=== PATIENT | female | born 1990 | race African-American/Black ===

== ENCOUNTER 2020-06-05 13:04 | Emergency (ER) | payer OTHER ==
[2020-06-05 13:26] VITALS: BP 118/72; PULSE 97; RESP 18; TEMP 99.2
[2020-06-05] MEDS ORDERED: ACET/COD 300 MG/30 MG STARTER PACK 6 TAB BTL PO STA (13:34)
--- NOTE | 2020-06-05 13:38 | ED ---
General Adult HPI - General Chief complaint: Dental/Oral Stated complaint: 2 abcessed teeth Time Seen by Provider: 06/05/20 13:10 Source: patient, RN notes reviewed, old records reviewed Mode of arrival: ambulatory Limitations: no limitations - History of Present Illness Initial comments: This is a 30-year-old female presents emergency Department complaining of pain in her upper and lower molar on the right. Patient states started 3 days ago. Patient states she's been unable to get into see a dentist this takes her insurance. Patient states it was swollen before but the swelling is gone down. Patient states she took an Advil before she came so some of the pain is gone away but she still having quite a bit of pain in both feet. Patient states she thought she might have an abscess that does not feel any lumps or bumps have any drainage. Patient denies any fever. - Related Data Previous Rx's Medication Instructions Recorded Cyclobenzaprine [Flexeril] 10 mg PO TID PRN #12 tablet 11/06/15 Azithromycin [Zithromax Z-pack (6 0 mg PO DIRECTED #6 tab 02/07/16 tabs)] Amoxicillin 500 mg PO Q8H #30 capsule 06/05/20 Ibuprofen [Motrin] 600 mg PO Q6HR PRN #20 tab 06/05/20 Allergies Allergy/AdvReac Type Severity Reaction Status Date / Time No Known Allergies Allergy Verified 06/05/20 13:26 Review of Systems ROS Statement: Those systems with pertinent positive or pertinent negative responses have been documented in the HPI. ROS Other: All systems not noted in ROS Statement are negative. Past Medical History Past Medical History: No Reported History Additional Past Medical History / Comment(s): OB history: First two pregnancies were vaginal deliveries. THis is her third . She has had care with me since the first trimester. O+, abs neg, RUb Imm, RPR NR, Hep B neg, GBS neg. History of Any Multi-Drug Resistant Organisms: None Reported Past Surgical History: Section Past Anesthesia/Blood Transfusion Reactions: No Reported Reaction Past Psychological History: No Psychological Hx Reported Smoking Status: Current every day smoker Past Alcohol Use History: Occasional Past Drug Use History: Marijuana - Past Family History Mother Family Medical History: No Reported History General Exam - General Exam Comments Initial Comments: GENERAL Patient is well-developed and well-nourished. Patient is in mild distress. EYES Patient's pupils are equal and round. Extraocular motion is intact MOUTH Patient has no obvious abscess however the patient does have some pain when palpating the tooth upper or lower molar on the right. SKIN Unremarkable NEURO The patient is alert and oriented 3 PYSCH Patient has normal interpersonal interactions. MUSCULOSKELETAL All 4 extremities have full range of motion. Limitations: no limitations Course Vital Signs 06/05/20 13:23 Temperature 99.2 F Pulse Rate 97 Respiratory 18 Rate Blood Pressure 118/72 O2 Sat by Pulse 100 Oximetry Disposition Clinical Impression: Pain, dental Disposition: HOME SELF-CARE Condition: Good Instructions (If sedation given, give patient instructions): Toothache (ED) Prescriptions: Amoxicillin 500 mg PO Q8H #30 capsule Ibuprofen [Motrin] 600 mg PO Q6HR PRN #20 tab PRN Reason: For pain Is patient prescribed a controlled substance at d/c from ED?: No Referrals: Denver Turcios MD [Primary Care Provider] - 1-2 days Time of Disposition: 13:37
== END 2020-06-05 13:48 | disposition home or self-care (01) ==
LOC: EC 13:04
DX: K08.89 Other specified disorders of teeth and supporting structures (principal); F17.200 Nicotine dependence, unspecified, uncomplicated
CPT/HCPCS: 99283

== ENCOUNTER 2020-07-16 14:57 | Emergency (ER) | payer OTHER ==
[2020-07-16] MEDS ORDERED: ALPRAZolam 0.25 MG TAB PO STA (16:25)
[2020-07-16 16:55] LABS: Appearance,Urine Clear (Clear); Bilirubin,Urine Negative (Negative); Blood,Urine Negative (Negative); Color,Urine Colorless; Glucose,Urine (UA) Negative (Negative); Ketones,Urine Negative (Negative); Leukocyte Esterase,Urine Negative (Negative); Nitrite,Urine Negative (Negative); PH, Urine 6.5 (5.0-8.0); Protein,Urine Negative (Negative); Specific Gravity,Urine 1.001 (1.001-1.035); Urobilinogen,Urine <2.0 mg/dL (<2.0)
[2020-07-16 16:58] LABS: Anisocytosis Slight; Basophils # (A) 0.1 k/uL (0-0.2); Basophils % (A) 1 %; Eosinophils # (A) 0.1 k/uL (0-0.7); Eosinophils % (A) 2 %; HCT 35.3 % (34.0-46.0); HGB 10.3 gm/dL (11.4-16.0); Hypochromasia Marked; Lymphocytes # (A) 1.3 k/uL (1.0-4.8); Lymphocytes % (A) 15 %; MCH 22.5 pg (25.0-35.0); MCHC 29.2 g/dL (31.0-37.0); MCV 76.9 fL (80.0-100.0); Mean Platelet Volume 6.6; Microcytosis Slight; Monocytes # (A) 0.4 k/uL (0-1.0); Monocytes % (A) 4 %; Neutrophils # (A) 6.6 k/uL (1.3-7.7); Neutrophils % (A) 78 %; Platelet Count 413 k/uL (150-450); RBC 4.59 m/uL (3.80-5.40); RDW 16.2 % (11.5-15.5); WBC 8.5 k/uL (3.8-10.6)
--- NOTE | 2020-07-16 17:14 | ED ---
General Adult HPI - General Chief complaint: Chest Pain Stated complaint: chest tightness Time Seen by Provider: 07/16/20 15:56 Source: family Mode of arrival: ambulatory Limitations: no limitations - History of Present Illness Initial comments: Patient is a 30-year-old female presenting to the emergency Department with complaints of chest tightness has been increasing since yesterday. She states when she tries to sit down and relax he feels like the tightness is worse. When she gets up and tries to walk around and does deep breathing she feels like it does improve. She states she has been under a lot of stress lately. She states she just quit a highly stressful job. She states she "also had a draining the other night that the world light and and feels like it increased her anxiety." She admits to some mild chest tightness at this time, no shortness of breath, no fevers or cough, no abdominal pain, no nausea or vomiting. She denies any new medications other than she did take a [place] today to see if it would help her relax but it did not do anything. She denies being secondary to tubal ligation. She denies any cardiac history, no history of PEs. She is adopted so is unsure of her family history. She denies any suicidal or homicidal thoughts. She has no further complaints at this time. - Related Data Home Medications Medication Instructions Recorded Confirmed No Known Home Medications 07/16/20 07/16/20 Allergies Allergy/AdvReac Type Severity Reaction Status Date / Time No Known Allergies Allergy Verified 07/16/20 17:33 Review of Systems ROS Statement: Those systems with pertinent positive or pertinent negative responses have been documented in the HPI. ROS Other: All systems not noted in ROS Statement are negative. Past Medical History Past Medical History: No Reported History Additional Past Medical History / Comment(s): OB history: First two pregnancies were vaginal deliveries. THis is her third . She has had care with me since the first trimester. O+, abs neg, RUb Imm, RPR NR, Hep B neg, GBS neg. History of Any Multi-Drug Resistant Organisms: None Reported Past Surgical History: Section Past Anesthesia/Blood Transfusion Reactions: No Reported Reaction Past Psychological History: No Psychological Hx Reported Smoking Status: Current every day smoker Past Alcohol Use History: Rare Past Drug Use History: Marijuana - Past Family History Mother Family Medical History: No Reported History General Exam - General Exam Comments Initial Comments: GENERAL: Patient is well-developed and well-nourished. Patient is nontoxic and in no acute distress, does appear very anxious, teary eyed during questioning. HEAD: Atraumatic, normocephalic. EYES: Pupils equal round and reactive to light, extraocular movements intact, sclera anicteric, conjunctiva are normal. Eyelids were unremarkable. ENT: TMs normal, nares patent, oropharynx clear without exudates. Moist mucous membranes. NECK: Normal range of motion, supple without lymphadenopathy or JVD. LUNGS: Unlabored respirations. Breath sounds clear to auscultation bilaterally and equal. No wheezes rales or rhonchi. HEART: Regular rate and rhythm without murmurs, rubs or gallops. ABDOMEN: Soft, nontender, normoactive bowel sounds. No guarding, no rebound. No masses appreciated. : Deferred MUSCULOSKELETAL: Normal extremities with adequate strength and normal range of motion, no pitting or edema. No clubbing or cyanosis. NEUROLOGICAL: Patient is alert and oriented x 3. Motor and sensory are also intact. Cranial nerves II through XII grossly intact. Symmetrical smile. Normal speech, normal gait. PSYCH: Normal mood, normal affect. SKIN: Warm, Dry, normal turgor, no rashes or lesions noted. Limitations: no limitations Course Vital Signs 07/16/20 07/16/20 15:38 17:50 Temperature 99.0 F Pulse Rate 137 H 74 Respiratory 17 16 Rate Blood Pressure 172/83 124/72 O2 Sat by Pulse 100 100 Oximetry EKG Findings - EKG Comments: EKG Findings:: Sinus tachycardia, otherwise normal ECG, no signs of acute ischemia. Ventricular rate 107, W[place] interval 158, QT 328. Medical Decision Making - Medical Decision Making Patient is a 30-year-old female here with complaints of chest tightness over the past 2 days. She is very anxious on exam, teary-eyed. Her vitals are stable other than some tachycardia. Lab work is unremarkable, urine is normal, chest x-ray is normal. Patient was given a small dose of Xanax, reports improvement in her symptoms. I discussed with patient that her symptoms are most likely related to anxiety, recommended following up with her PCP for further anxiety management. Patient is stable for discharge. Patient is in agreement with this plan of care. Return parameters were discussed with the patient and they verbalized understanding. Case discussed with Dr. Joe. - Lab Data Result diagrams: 07/16/20 16:34 07/16/20 16:34 Lab Results 07/16/20 07/16/20 07/16/20 Range/Units 16:34 16:34 16:34 WBC 8.5 (3.8-10.6) k/uL RBC 4.59 (3.80-5.40) m/uL Hgb 10.3 L (11.4-16.0) gm/dL Hct 35.3 (34.0-46.0) % MCV 76.9 L (80.0-100.0) fL MCH 22.5 L (25.0-35.0) pg MCHC 29.2 L (31.0-37.0) g/dL RDW 16.2 H (11.5-15.5) % Plt Count 413 (150-450) k/uL MPV 6.6 Neutrophils % 78 % Lymphocytes % 15 % Monocytes % 4 % Eosinophils % 2 % Basophils % 1 % Neutrophils # 6.6 (1.3-7.7) k/uL Lymphocytes # 1.3 (1.0-4.8) k/uL Monocytes # 0.4 (0-1.0) k/uL Eosinophils # 0.1 (0-0.7) k/uL Basophils # 0.1 (0-0.2) k/uL Hypochromasia Marked Anisocytosis Slight Microcytosis Slight Sodium (137-145) mmol/L Potassium (3.5-5.1) mmol/L Chloride (98-107) mmol/L Carbon Dioxide (22-30) mmol/L Anion Gap mmol/L BUN (7-17) mg/dL Creatinine (0.52-1.04) mg/dL Est GFR (CKD-EPI)AfAm (>60 ml/min/1.73 sqM) Est GFR (CKD-EPI)NonAf (>60 ml/min/1.73 sqM) Glucose (74-99) mg/dL Calcium (8.4-10.2) mg/dL Total Bilirubin (0.2-1.3) mg/dL AST (14-36) U/L ALT (4-34) U/L Alkaline Phosphatase (38-126) U/L Troponin I (0.000-0.034) ng/mL Total Protein (6.3-8.2) g/dL Albumin (3.5-5.0) g/dL Urine Color Colorless Urine Appearance Clear (Clear) Urine pH 6.5 (5.0-8.0) Ur Specific [place] 1.001 (1.001-1.035) Urine Protein Negative (Negative) Urine Glucose (UA) Negative (Negative) Urine Ketones Negative (Negative) Urine Blood Negative (Negative) Urine Nitrite Negative (Negative) Urine Bilirubin Negative (Negative) Urine Urobilinogen <2.0 (<2.0) mg/dL Ur Leukocyte Esterase Negative (Negative) Urine HCG, Qual Not Detected (Not Detectd) 07/16/20 07/16/20 Range/Units 16:34 16:36 WBC (3.8-10.6) k/uL RBC (3.80-5.40) m/uL Hgb (11.4-16.0) gm/dL Hct (34.0-46.0) % MCV (80.0-100.0) fL MCH (25.0-35.0) pg MCHC (31.0-37.0) g/dL RDW (11.5-15.5) % Plt Count (150-450) k/uL MPV Neutrophils % % Lymphocytes % % Monocytes % % Eosinophils % % Basophils % % Neutrophils # (1.3-7.7) k/uL Lymphocytes # (1.0-4.8) k/uL Monocytes # (0-1.0) k/uL Eosinophils # (0-0.7) k/uL Basophils # (0-0.2) k/uL Hypochromasia Anisocytosis Microcytosis Sodium 141 (137-145) mmol/L Potassium 3.7 (3.5-5.1) mmol/L Chloride 108 H (98-107) mmol/L Carbon Dioxide 22 (22-30) mmol/L Anion Gap 11 mmol/L BUN 6 L (7-17) mg/dL Creatinine 0.65 (0.52-1.04) mg/dL Est GFR (CKD-EPI)AfAm >90 (>60 ml/min/1.73 sqM) Est GFR (CKD-EPI)NonAf >90 (>60 ml/min/1.73 sqM) Glucose 99 (74-99) mg/dL Calcium 10.0 (8.4-10.2) mg/dL Total Bilirubin 0.4 (0.2-1.3) mg/dL AST 23 (14-36) U/L ALT 6 (4-34) U/L Alkaline Phosphatase 63 (38-126) U/L Troponin I <0.012 (0.000-0.034) ng/mL Total Protein 8.3 H (6.3-8.2) g/dL Albumin 4.9 (3.5-5.0) g/dL Urine Color Urine Appearance (Clear) Urine pH (5.0-8.0) Ur Specific [place] (1.001-1.035) Urine Protein (Negative) Urine Glucose (UA) (Negative) Urine Ketones (Negative) Urine Blood (Negative) Urine Nitrite (Negative) Urine Bilirubin (Negative) Urine Urobilinogen (<2.0) mg/dL Ur Leukocyte Esterase (Negative) Urine HCG, Qual (Not Detectd) Disposition Clinical Impression: Atypical chest pain, Anxiety Disposition: HOME SELF-CARE Condition: Stable Instructions (If sedation given, give patient instructions): Anxiety (ED) Additional Instructions: Please return to the Emergency Department if symptoms worsen or any other concerns. Recommend following up with your primary care physician in regards to anxiety management. Is patient prescribed a controlled substance at d/c from ED?: No Referrals: Denver Turcios MD [Primary Care Provider] - 1-2 days Time of Disposition: 18:01
[2020-07-16 17:16] LABS: ALT 6 U/L (4-34); AST 23 U/L (14-36); African American GFR (CKD) >90 (>60 ml/min/1.73 sqM); Albumin 4.9 g/dL (3.5-5.0); Alkaline Phosphatase 63 U/L (38-126); Anion Gap 11 mmol/L; Blood Urea Nitrogen 6 mg/dL (7-17); Carbon Dioxide 22 mmol/L (22-30); Chloride 108 mmol/L (98-107); Glucose 99 mg/dL (74-99); Non-African American GFR(CKD) >90 (>60 ml/min/1.73 sqM); Potassium 3.7 mmol/L (3.5-5.1); Sodium 141 mmol/L (137-145); Total Bilirubin 0.4 mg/dL (0.2-1.3); Total Protein 8.3 g/dL (6.3-8.2)
[2020-07-16 17:50] VITALS: BP 124/72; PULSE 74; RESP 16
--- NOTE | 2020-07-16 17:53 | XR ---
EXAMINATION TYPE: XR chest 2V DATE OF EXAM: 07/16/2020 COMPARISON: 02/07/2016 HISTORY: Chest pain TECHNIQUE: FINDINGS: Heart and mediastinum are normal. Lungs are clear. Diaphragm is normal. Bony thorax appears normal. IMPRESSION: Normal chest. There is clearing of pneumonia in the left lower lobe compared to old exam.
[2020-07-16 18:32] VITALS: TEMP 98
== END 2020-07-16 18:31 | disposition home or self-care (01) ==
LOC: EC 14:57
DX: R07.89 Other chest pain (principal); F41.9 Anxiety disorder, unspecified; F17.200 Nicotine dependence, unspecified, uncomplicated
CPT/HCPCS: 36415; 71046; 80053; 81003; 81025; 84484; 85025; 87636; 93005; 99285

== ENCOUNTER 2022-09-20 19:16 | Inpatient (IN) | payer MEDICAID, OTHER ==
--- NOTE | 2022-09-20 23:50 | ED ---
Psych HPI - General Chief Complaint: Psychiatric Symptoms Stated Complaint: Mental Health, Hearing Voices Time Seen by Provider: 09/20/22 23:00 Source: patient Mode of arrival: ambulatory - History of Present Illness Initial Comments: Patient is a 32-year-old woman who presents with complaint that she is hearing voices that are giving her commands and suicidal ideation. Complaint: suicidal ideation -: week(s) Associated Psychiatric Symptoms: racing thoughts, auditory hallucinations Quality: constant, getting worse Improves With: none Worsens With: none Associated Symptoms: denies other symptoms - Related Data Previous Rx's Medication Instructions Recorded Nicotine 14Mg/24Hr Patch [Habitrol] 1 patch TRANSDERM DAILY 45 Days 09/24/22 #45 patch QUEtiapine [SEROquel] 150 mg PO DAILY 30 Days #45 tablet 09/24/22 Allergies Allergy/AdvReac Type Severity Reaction Status Date / Time No Known Allergies Allergy Verified 09/21/22 01:51 Review of Systems ROS Statement: Those systems with pertinent positive or pertinent negative responses have been documented in the HPI. ROS Other: All systems not noted in ROS Statement are negative. Constitutional: Denies: fever Eyes: Denies: vision change Respiratory: Denies: cough, dyspnea Cardiovascular: Denies: chest pain, palpitations Gastrointestinal: Denies: abdominal pain, vomiting, diarrhea Genitourinary: Denies: dysuria, hematuria Musculoskeletal: Denies: back pain Skin: Denies: rash Neurological: Denies: headache, weakness Psychiatric: Reports: auditory hallucinations, suicidal thoughts. Denies: visual hallucinations, homicidal thoughts Past Medical History Past Medical History: No Reported History Additional Past Medical History / Comment(s): OB history: First two pregnancies were vaginal deliveries. THis is her third . She has had care with [facility] since the first trimester. O+, abs neg, RUb Imm, RPR NR, Hep B neg, GBS neg. History of Any Multi-Drug Resistant Organisms: None Reported Past Surgical History: Section Past Anesthesia/Blood Transfusion Reactions: No Reported Reaction Past Psychological History: No Psychological Hx Reported Smoking Status: Current every day smoker Past Alcohol Use History: Rare Past Drug Use History: Marijuana, Opiates - Past Family History Mother Family Medical History: No Reported History General Exam Limitations: no limitations General appearance: alert, in no apparent distress Head exam: Present: atraumatic, normocephalic Eye exam: Present: normal appearance. Absent: scleral icterus, conjunctival injection Neck exam: Present: normal inspection Respiratory exam: Present: normal lung sounds bilaterally. Absent: respiratory distress, wheezes, rales, rhonchi, stridor Cardiovascular Exam: Present: regular rate, normal rhythm, normal heart sounds. Absent: systolic murmur, diastolic murmur, rubs, gallop GI/Abdominal exam: Present: soft. Absent: distended, tenderness, guarding, rebound Neurological exam: Present: alert, normal gait Psychiatric exam: Present: suicidal ideation. Absent: agitated, anxious, flat affect, homicidal ideation Skin exam: Present: warm, dry, intact, normal color. Absent: rash Course Vital Signs 09/20/22 20:11 Pulse Rate 96 Respiratory 18 Rate Blood Pressure 127/79 O2 Sat by Pulse 98 Oximetry Medical Decision Making - Medical Decision Making Was pt. sent in by a medical professional or institution ( PA, [facility], urgent care, hospital, or retirement...) When possible be specific @ -[No] Did you speak to anyone other than the patient for history (EMS, parent, family, police, friend...)? What history was obtained from this source @ -[No] Did you review nursing and triage notes (agree or disagree)? Why? @ -[I reviewed and agree with nursing and triage notes] Were old charts reviewed (outside hosp., previous admission, EMS record, old EKG, old radiological studies, urgent care reports/EKG's, retirement records)? Report findings @ -[No old charts were reviewed] Differential Diagnosis (chest pain, altered mental status, abdominal pain women, abdominal pain men, vaginal bleeding, weakness, fever, dyspnea, syncope, headache, dizziness, GI bleed, back pain, seizure, CVA, palpatations, mental health, musculoskeletal)? @ -Differential Mental Health Depression, anxiety, bipolar, psychosis, schizophrenia, borderline personality, situational depression, adjustment disorder, behavioral disorder, brain tumor, malingering, substance abuse, encephalopathy, medication reaction, dementia, hypothyroidism, degenerative neurologic disorder, lupus.... This is not meant to be all-inclusive list EKG interpreted by me (3pts min.). @ -[ X-rays interpreted by me (1pt min.). @ -[None done] CT interpreted by me (1pt min.). @ -[None done] U/S interpreted by me (1pt. min.). @ -[None done] What testing was considered but not performed or refused? (CT, X-rays, U/S, labs)? Why? @ -[None] What meds were considered but not given or refused? Why? @ -[None] Did you discuss the management of the patient with other professionals (professionals i.e. , PA, [facility], lab, RT, psych nurse, social worker psychiatric, agile developer, teacher, chief scientific officer, keycase assembler)? Give summary @ -[I discussed case with EPS personnel Was smoking cessation discussed for >3mins.? @ -[No] Was critical care preformed (if so, how long)? @ -[No] Were there social determinants of health that impacted care today? How? (Homelessness, low income, unemployed, alcoholism, drug addiction, transportation, low edu. Level, literacy, decrease access to med. care, fdc, rehab)? @ -[No] Was there de-escalation of care discussed even if they declined (Discuss DNR or withdrawal of care, Hospice)? DNR status @ -[No] What co-morbidities impacted this encounter? (DM, HTN, Smoking, COPD, CAD, Cancer, CVA, ARF, Chemo, Hep., AIDS, mental health diagnosis, sleep apnea, morbid obesity)? @ -[None] Was patient admitted / discharged? Hospital course, mention meds given and route, prescriptions, significant lab abnormalities, going to OR and other pertinent info. @ -[The patient will be admitted for further mental health treatment Undiagnosed new problem with uncertain prognosis? @ -[No] Drug Therapy requiring intensive monitoring for toxicity (Heparin, Nitro, Insulin, Cardizem)? @ -[No] Were any procedures done? @ -[No] Diagnosis/symptom? @ -[Acute mood disorder with suicidal ideation Acute, or Chronic, or Acute on Chronic? @ -[default] Uncomplicated (without systemic symptoms) or Complicated (systemic symptoms)? @ -[Uncomplicated Side effects of treatment? @ -[No] Exacerbation, Progression, or Severe Exacerbation? @ -[No] Poses a threat to life or bodily function? How? (Chest pain, [place], [place], pneumonia, PE, COPD, DKA, ARF, appy, cholecystitis, CVA, Diverticulitis, Homicidal, Suicidal, threat to staff... and all critical care pts) @ -[Yes, untreated mood disorder may progress to suicide attempt/ - Lab Data Result diagrams: 09/21/22 10:54 09/21/22 10:54 Lab Results 09/21/22 09/21/22 09/21/22 Range/Units 00:00 00:00 01:11 Urine Color Yellow Urine Appearance Cloudy H (Clear) Urine pH 6.0 (5.0-8.0) Ur Specific [place] 1.034 (1.001-1.035) Urine Protein 1+ H (Negative) Urine Glucose (UA) Negative (Negative) Urine Ketones Negative (Negative) Urine Blood Negative (Negative) Urine Nitrite Negative (Negative) Urine Bilirubin Negative (Negative) Urine Urobilinogen 2.0 (<2.0) mg/dL Ur Leukocyte Esterase Negative (Negative) Urine RBC 2 (0-5) /hpf Urine WBC 5 (0-5) /hpf Ur Squamous Epith Cells 5 H (0-4) /hpf Calcium Oxalate Crystal Moderate H (None) /hpf Amorphous Sediment Occasional H (None) /hpf Urine Bacteria Occasional H (None) /hpf Hyaline Casts 3 H (0-2) /lpf Urine Mucus Many H (None) /hpf Urine HCG, Qual Not Detected (Not Detectd) Coronavirus (PCR) Not Detected (Not Detectd) Disposition Clinical Impression: Acute psychosis, Mood disorder Disposition: ADMITTED IP TO THIS [facility] Condition: Stable
[2022-09-21] MEDS ORDERED: MAGNESIUM HYDROXIDE 2,400 MG/30 ML CUP PO PRN (01:36)
[2022-09-21] MEDS ORDERED: ACETAMINOPHEN TAB 325 MG TAB PO PRN (01:36)
[2022-09-21] MEDS ORDERED: haloperidoL 5 MG TAB PO PRN (01:36)
[2022-09-21] MEDS ORDERED: IBUPROFEN 600 MG TAB PO PRN (01:36)
[2022-09-21] MEDS ORDERED: MAG HYDROX/AL HYDROX/SIMETH 30 ML CUP PO PRN (01:36)
[2022-09-21] MEDS ORDERED: LORazepam 1 MG TAB PO PRN (01:36)
[2022-09-21] MEDS ORDERED: HALOPERIDOL LACTATE 5 MG/ML 1 ML VIAL IM PRN (01:42)
[2022-09-21] MEDS ORDERED: LORazepam 2 MG/ML INJ IM PRN (01:43)
[2022-09-21 02:00] LABS: Amorphous Sediment,Urine Occasional /hpf; Appearance,Urine Cloudy (Clear); Bacteria,Urine Occasional /hpf; Bilirubin,Urine Negative (Negative); Blood,Urine Negative (Negative); Calcium Oxalate Crystals,Urine Moderate /hpf; Color,Urine Yellow; Glucose,Urine (UA) Negative (Negative); Hyaline Casts,Urine 3 /lpf (0-2); Ketones,Urine Negative (Negative); Leukocyte Esterase,Urine Negative (Negative); Mucus,Urine Many /hpf; Nitrite,Urine Negative (Negative); Protein,Urine 1+ (Negative); RBC,Urine 2 /hpf (0-5); Specific Gravity,Urine 1.034 (1.001-1.035); Squamous Epithelial Cell,Urine 5 /hpf (0-4); WBC,Urine 5 /hpf (0-5)
[2022-09-21 02:01] LABS: Amphetamine Screen,Urine Not Detected (NotDetected); Barbiturate Screen,Urine Not Detected (NotDetected); Benzodiazepines Screen,Urine Not Detected (NotDetected); Cocaine Screen,Urine Not Detected (NotDetected); Methadone Screen, Urine Not Detected (NotDetected); Opiate Screen,Urine Not Detected (NotDetected); Oxycodone Screen, Urine Not Detected (NotDetected); Phencyclidine Screen,Urine Not Detected (NotDetected); Tricyclic Antidepressant,Urine Not Detected (NotDetected); Urn Cannabinoid Scrn Detected (NotDetected)
[2022-09-21] MEDS: NICOTINE 14MG/24HR PATCH TRANSDERM SCH (09:17)
[2022-09-21] MEDS ORDERED: OLANZapine ODT 5 MG TAB PO PRN (10:13)
[2022-09-21] MEDS ORDERED: hydrOXYzine pamoate 25 MG CAP PO PRN (10:13)
[2022-09-21] MEDS ORDERED: OLANZapine 10 MG VIAL IM PRN (10:14)
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
[2022-09-21 11:32] LABS: Basophils % (A) 1 %; Eosinophils # (A) 0.1 k/uL (0-0.7); Eosinophils % (A) 1 %; HCT 34.8 % (34.0-46.0); HGB 10.5 gm/dL (11.4-16.0); Hypochromasia Marked; Lymphocytes # (A) 1.6 k/uL (1.0-4.8); Lymphocytes % (A) 26 %; MCH 24.6 pg (25.0-35.0); MCHC 30.1 g/dL (31.0-37.0); MCV 81.7 fL (80.0-100.0); Mean Platelet Volume 7.3; Monocytes # (A) 0.5 k/uL (0-1.0); Monocytes % (A) 7 %; Neutrophils # (A) 3.9 k/uL (1.3-7.7); Neutrophils % (A) 63 %; Platelet Count 365 k/uL (150-450); RBC 4.26 m/uL (3.80-5.40); RDW 15.5 % (11.5-15.5); WBC 6.2 k/uL (3.8-10.6)
[2022-09-21 11:49] LABS: ALT 13 U/L (4-34); AST 20 U/L (14-36); African American GFR (CKD) >90 (>60 ml/min/1.73 sqM); Albumin 4.4 g/dL (3.5-5.0); Alkaline Phosphatase 43 U/L (38-126); Anion Gap 8 mmol/L; Blood Urea Nitrogen 9 mg/dL (7-17); Calcium 9.7 mg/dL (8.4-10.2); Carbon Dioxide 25 mmol/L (22-30); Chloride 105 mmol/L (98-107); Glucose 111 mg/dL (74-99); Non-African American GFR(CKD) >90 (>60 ml/min/1.73 sqM); Potassium 4.3 mmol/L (3.5-5.1); Sodium 138 mmol/L (137-145); Total Bilirubin 0.6 mg/dL (0.2-1.3); Total Protein 7.5 g/dL (6.3-8.2)
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
[2022-09-21] MEDS ORDERED: QUEtiapine 100 MG TAB PO SCH (21:00)
[2022-09-22] MEDS: NICOTINE 14MG/24HR PATCH TRANSDERM SCH (08:48)
--- NOTE | 2022-09-22 11:39 | P.PN ---
Progress Note - Text Progress Note Date: 09/22/22 Interval History: Patient was seen resting in bed and was directable and agreeable to speak with filing writer in the office. Currently, the patient reports that she was experiencing auditory hallucinations and generalized paranoia yesterday however after taking the Seroquel, she is not noticing any psychotic symptoms. She is currently denying any auditory or visual hallucinations. She reports no paranoia or other delusions. She states that she is feeling better. She denies any suicidal or homicidal ideation, intention, and/or plan. She reports no medical issues or concerns. He has been adherent with her medications and is not reporting any significant side effects. Mental Status Exam: General Appearance: Patient appears to be stated age is alert, directable, and cooperative. Behavior: Patient is calmly seated without any agitated behavior. Speech: Patient's speech is fluent and nonpressured. Mood/Affect: Mood is improving mildly, affect is congruent and constricted. Suicidality/Homicidality: Patient denies having any suicidal or homicidal ideation intent or plan. Perceptions: Patient denies any visual hallucinations and denies any auditory hallucinations Though content/process: There is no evidence of any delusional thought content and thought process is linear and goal-directed. Memory and concentration: AOX3, grossly intact for the purposes of this session Judgment and insight: Improving mildly Vital Signs Temp 98.9 F 09/22/22 06:43 Pulse 83 09/22/22 06:43 Resp 16 09/22/22 06:43 BP 124/56 09/22/22 06:43 Pulse Ox 98 09/21/22 03:05 FiO2 Laboratory Results - Last 24 Hours 09/21/22 10:54 Sodium 138 Potassium 4.3 Chloride 105 Carbon Dioxide 25 Anion Gap 8 BUN 9 Creatinine 0.70 Est GFR (CKD-EPI)AfAm >90 Est GFR (CKD-EPI)NonAf >90 Glucose 111 H Calcium 9.7 Total Bilirubin 0.6 AST 20 ALT 13 Alkaline Phosphatase 43 Total Protein 7.5 Albumin 4.4 TSH 0.957 Assessment Acute psychotic episode Opiate use disorder Cannabis abuse Nicotine dependence Plan: -Patient continues to meet criteria for inpatient psychiatric admission for symptom stabilization and safety. Patient has signed adult voluntary form and medication consent and was placed in patient's chart. -Medications: Increase Seroquel to 150 mg by mouth at bedtime for psychosis -When necessary Zyprexa and Vistaril for agitation/aggression. -NRT - nicotine patch -SW on board for discharge planning. Encouraged the patient to participate in milieu.
[2022-09-22 16:03] LABS: Chol/HDL Ratio 2.98 Ratio; LDL Cholesterol,Calculated 90.2 mg/dL (0.0-131.0); VLDL Calculation 11.38 mg/dL (5.00-40.00)
[2022-09-22] MEDS: QUEtiapine 50 MG TAB PO SCH (21:27)
[2022-09-23 07:08] VITALS: TEMP 98.2
[2022-09-23] MEDS: NICOTINE 14MG/24HR PATCH TRANSDERM SCH (08:45)
--- NOTE | 2022-09-23 10:21 | P.PN ---
Progress Note - Text Progress Note Date: 09/23/22 Interval History: Patient was seen resting in bed and was directable and agreeable to speak with proposal manager writer in her room. The patient reports that she is feeling significantly better. She is not reporting any suicidal or homicidal ideation, intention, and/or plan. She reports no auditory or visual hallucinations. She is denying any paranoia or other delusions. She has been adherent with her medications and reports only mild sedation as a side effect. She reports she is content with her treatment and care. She denies any medical issues or concerns. Mental Status Exam: General Appearance: Patient appears to be stated age is alert, directable, and cooperative. Behavior: Patient is calmly seated without any agitated behavior. Reading a book. Smiles appropriately. Speech: Patient's speech is fluent and nonpressured. Mood/Affect: Mood is improving mildly, affect is congruent and euthymic. Suicidality/Homicidality: Patient denies having any suicidal or homicidal ideation intent or plan. Perceptions: Patient denies any visual hallucinations and denies any auditory hallucinations Though content/process: There is no evidence of any delusional thought content and thought process is linear and goal-directed. Memory and concentration: AOX3, grossly intact for the purposes of this session Judgment and insight: Improving mildly Vital Signs Temp 98.2 F 09/23/22 06:00 Pulse 72 09/23/22 06:00 Resp 18 09/23/22 06:00 BP 114/76 09/23/22 06:00 Pulse Ox 100 09/23/22 06:00 FiO2 Laboratory Results - Last 24 Hours 09/22/22 09/22/22 09:16 09:[address] Glu mg/dL 117 Hemoglobin A1c 5.7 Triglycerides 56.90 Cholesterol 153.00 LDL Cholesterol, Calc 90.2 VLDL Cholesterol, Calc 11.38 HDL Cholesterol 51.40 Cholesterol/HDL Ratio 2.98 Assessment Acute psychotic episode Opiate use disorder Cannabis abuse Nicotine dependence Plan: -Patient continues to meet criteria for inpatient psychiatric admission for symptom stabilization and safety. Patient has signed adult voluntary form and medication consent and was placed in patient's chart. -Medications: Continue Seroquel 150 mg by mouth at bedtime for psychosis -When necessary Zyprexa and Vistaril for agitation/aggression. -NRT - nicotine patch -SW on board for discharge planning. Encouraged the patient to participate in milieu.
[2022-09-23] MEDS: NICOTINE GUM (POLACRILEX) 2 MG GUM BUCCAL PRN ×2 (16:11→18:18)
[2022-09-23] MEDS: QUEtiapine 50 MG TAB PO SCH (21:27)
[2022-09-24] MEDS: NICOTINE GUM (POLACRILEX) 2 MG GUM BUCCAL PRN (06:57)
[2022-09-24 06:58] VITALS: BP 114/55; PULSE 65; RESP 20
[2022-09-24] MEDS: NICOTINE 14MG/24HR PATCH TRANSDERM SCH (08:30)
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
--- NOTE | 2022-09-25 23:00 | PN ---
PROGRESS NOTE CHIEF COMPLAINT: Major depression with acute psychosis. HISTORY OF PRESENT ILLNESS: This lady is doing well and expects to leave today. She feels stable and she will be seen in the office in several days. PHYSICAL EXAM: HEENT: Head ears, eyes, nose, mouth and throat were normal. CHEST: Clear. CARDIAC: Normal. ABDOMEN: soft. IMPRESSION: 1. Major depression. 2. Acute psychosis. PLAN: Home today. MMODL / IJN: [id number] /
== END 2022-09-24 11:46 | disposition home or self-care (01) | DRG 751 ==
LOC: EC 19:16 → 3MHU 09-21 01:33
PROVIDERS: ADMIT Psychiatry & Neurology Psychiatry; ATTEND Psychiatry & Neurology Psychiatry
DX: F23 Brief psychotic disorder (principal); R45.851 Suicidal ideations; F11.10 Opioid abuse, uncomplicated; F12.10 Cannabis abuse, uncomplicated; Z20.822 Contact with and (suspected) exposure to COVID-19; F17.210 Nicotine dependence, cigarettes, uncomplicated; Z71.6 Tobacco abuse counseling; Z62.810 Personal history of physical and sexual abuse in childhood; Z71.41 Alcohol abuse counseling and surveillance of alcoholic; Z71.51 Drug abuse counseling and surveillance of drug abuser
CPT/HCPCS: 80053; 80061; 80306; 81001; 81025; 82075; 83036; 84443; 85025; 87635; 99285